=== PATIENT | male | born 1995 | race African-American/Black ===

== ENCOUNTER 2018-04-11 10:25 | Emergency (ER) | payer BC ==
[~2018-04-11] VITALS: Ht 170.2 cm; Wt 95.3 kg
[2018-04-11] MEDS ORDERED: PRILOSEC OTC20 MG (10:35)
[2018-04-11] MEDS ORDERED: PROTONIX40 MG PO (13:14)
== END 2018-04-11 13:24 | disposition home or self-care (01) ==
LOC: ER 10:25
DX: R11.11 Vomiting without nausea (principal)